=== PATIENT | male | born 1975 | race African-American/Black ===

== ENCOUNTER 2025-02-27 19:18 | Inpatient (IN) | payer MEDICAID, OTHER ==
[~2025-02-27] VITALS: Ht 170.2 cm; Wt 60.3 kg
[2025-02-27 01:28] VITALS: BP 138/59; PULSE 84; RESP 18; TEMP 36.1956
[2025-02-27] MEDS: DIPHENHYDRAMINE 50MG/ML VIAL IM ONE (20:32)
[2025-02-27] MEDS: HALOPERIDOL LACTATE 5MG/ML VIAL IM ONE (20:32)
[2025-02-27 20:41] LABS: BASOPHILS % 0.8 % (0.0-2.0); EOSINOPHILS % 4.9 % (0.0-5.0); HEMATOCRIT. 33.0 % (42.0-52.0); HEMOGLOBIN. 10.5 g/dL (14.0-18.0); LYMPHOCYTES % 28.9 % (20.0-50.0); MEAN PLATELET VOLUME 8.3 fl (7.4-10.4); MONOCYTES % 8.5 % (2.0-8.0); NEUTROPHILS % 56.9 % (40.0-76.0); PLATELET 202 x1000/uL (130-400); RED BLOOD CELL COUNT 3.32 mill/uL (4.7-6.1); RED CELL DISTRIBUTION WIDTH 17.2 % (11.6-14.6)
[2025-02-27 20:53] LABS: INR 1.2
[2025-02-27 20:57] LABS: CREATININE 2.5 mg/dL (0.6-1.3); UREA NITROGEN BLOOD 35 mg/dL (9-23)
[2025-02-27 20:59] LABS: ASPARTATE AMINOTRANSFERASE 223 IU/L (<34); BILIRUBIN DIRECT 0.6 mg/dL (<=3.0); BILIRUBIN TOTAL 1.6 mg/dL (0.1-1.0); PROTEIN TOTAL 7.9 g/dL (6.0-8.3)
[2025-02-27] MEDS ORDERED: MIDAZOLAM HCL 2 MG/2 ML VIAL IV ONE (21:00)
[2025-02-27 21:02] VITALS: O2SAT 98
[2025-02-27] MEDS: MIDAZOLAM HCL 2 MG/2 ML VIAL IM ONE (21:02)
[2025-02-27 21:45] LABS: TROPONIN I HIGH SENSITIVITY 134 ng/L (3.0-53)
[2025-02-27] MEDS ORDERED: CLONIDINE 0.1MG TABLET PO PRN (22:15)
[2025-02-27] MEDS ORDERED: POTASSIUM CHLORIDE 20MEQ TABLET SR PO PRN (22:15)
[2025-02-27] MEDS ORDERED: ONDANSETRON HCL 4MG/2ML INJ IV PRN (22:15)
[2025-02-27] MEDS ORDERED: HYDROCODONE/ACETAMINOPHEN 5/325MG TABLET PO PRN (22:15)
[2025-02-27] MEDS ORDERED: IPRATROPIUM/ALBUTEROL 0.5-3(2.5)MG/3ML NEB HHN PRN (22:15)
[2025-02-27] MEDS ORDERED: MAGNESIUM/ALUMINUM HYDROXIDE/SIMETHICONE 30ML UDC PO PRN (22:15)
[2025-02-27] MEDS ORDERED: DEXTROSE 50% WATER 50ML SYRINGE IV PRN (22:15)
[2025-02-27] MEDS: ZIPRASIDONE MESYLATE 20MG/VIAL IM ONE (22:53)
[2025-02-27] MEDS: CLOPIDOGREL 75MG TABLET PO ONE (23:44)
[2025-02-27] MEDS: ASPIRIN 325MG EC TABLET PO ONE (23:45)
[2025-02-27] MEDS: FUROSEMIDE 40MG/4 ML UDC PO ONE (23:45)
[2025-02-28 00:34] LABS: CLARITY URINE CLEAR (CLEAR); COLOR URINE YELLOW (YELLOW); GLUCOSE URINE NEGATIVE (NEGATIVE); KETONES URINE NEGATIVE (NEGATIVE); LEUKOCYTE ESTERASE URINE NEGATIVE (NEGATIVE); NITRITE URINE NEGATIVE (NEGATIVE); OCCULT BLOOD URINE 1+ (NEGATIVE); PH URINE 5.5 (4.5-8.0); PROTEIN URINE 3+ (NEGATIVE); SPECIFIC GRAVITY URINE 1.014 (1.005-1.030); UROBILINOGEN URINE 1.0 E.U./dL (0.2-1.0)
[2025-02-28] MEDS ORDERED: ACETAMINOPHEN 650MG SUPP PR PRN (00:45)
[2025-02-28 00:46] LABS: *AMPHETAMINES SCREEN URINE NEGATIVE (NEGATIVE); *BARBITURATES SCREEN URINE NEGATIVE (NEGATIVE); *BENZODIAZEPINES SCREEN URINE PRESUMPTIVE POSITIVE (NEGATIVE); *COCAINE SCREEN URINE PRESUMPTIVE POSITIVE (NEGATIVE); METHADONE URINE SCREEN NEGATIVE (NEGATIVE)
[2025-02-28 00:47] LABS: CANNABINOID URINE SCREEN PRESUMPTIVE POSITIVE (NEGATIVE); ECSTASY MDMA SCREEN URINE NEGATIVE (NEGATIVE); OPIATES URINE SCREEN NEGATIVE (NEGATIVE); PHENCYCLIDINE URINE SCREEN NEGATIVE (NEGATIVE)
[2025-02-28 01:00] LABS: BACTERIA URINE 1+; SQUAMOUS EPITHELIAL CELL URINE RARE /lpf (RARE/1+); WBC URINE 0-2 /hpf (0-2)
[2025-02-28] MEDS: LORAZEPAM 2MG/ML UD SYRINGE IV PRN (04:12)
[2025-02-28] MEDS: FUROSEMIDE 40MG/4ML VIAL IV SCH (04:14)
[2025-02-28 04:30] LABS: TROPONIN I HIGH SENSITIVITY 119 ng/L (3.0-53)
[2025-02-28] MEDS: BLOOD SUGAR DIAGNOSTIC STRIP TEST SCH (06:07)
[2025-02-28] MEDS: INSULIN LISPRO 100 UNITS/ML SUBCUT SCH (06:08)
[2025-02-28] MEDS: FOLIC ACID 1 MG, THIAMINE HCL 100 MG, MVI, ADULT NO.1 10 ML in DEXTROSE 5% WATER 1,000 ML IV ONE (06:24)
[2025-02-28 08:00] VITALS: BP 139/105; PULSE 81; RESP 18; TEMP 36.6; O2SAT 97
[2025-02-28] MEDS ORDERED: ENOXAPARIN 40MG/0.4ML SYR SUBCUT SCH (09:00)
[2025-02-28] MEDS ORDERED: FUROSEMIDE 40MG/4ML VIAL IV SCH (09:00)
[2025-02-28 09:41] LABS: BASOPHILS % 0.9 % (0.0-2.0); EOSINOPHILS % 5.2 % (0.0-5.0); HEMATOCRIT. 34.0 % (42.0-52.0); HEMOGLOBIN. 10.9 g/dL (14.0-18.0); LYMPHOCYTES % 32.5 % (20.0-50.0); MEAN PLATELET VOLUME 8.5 fl (7.4-10.4); MONOCYTES % 7.1 % (2.0-8.0); NEUTROPHILS % 54.3 % (40.0-76.0); PLATELET 189 x1000/uL (130-400); RED BLOOD CELL COUNT 3.42 mill/uL (4.7-6.1); RED CELL DISTRIBUTION WIDTH 16.8 % (11.6-14.6)
[2025-02-28 10:12] LABS: CREATININE 2.4 mg/dL (0.6-1.3); TRIGLYCERIDE 88 mg/dL (0-150); UREA NITROGEN BLOOD 39 mg/dL (9-23)
[2025-02-28 10:13] LABS: LDL CHOLESTEROL 97 mg/dL (5-100)
[2025-02-28 10:14] LABS: ASPARTATE AMINOTRANSFERASE 177 IU/L (<34); BILIRUBIN DIRECT 0.6 mg/dL (<=3.0); PROTEIN TOTAL 8.1 g/dL (6.0-8.3)
[2025-02-28 10:15] LABS: BILIRUBIN TOTAL 1.7 mg/dL (0.1-1.0); PHOSPHORUS 3.8 mg/dL (2.5-4.9); T4 FREE 1.36 ng/dL (0.89-1.76)
[2025-02-28 11:44] LABS: FOLIC ACID (FOLATE) SERUM > 20.00 ng/mL (>5.38)
[2025-02-28 11:55] VITALS: BP 135/109; PULSE 82; RESP 18; TEMP 37.2; O2SAT 98
[2025-02-28 12:15] LABS: T4 FREE 1.33 ng/dL (0.89-1.76)
[2025-02-28 12:29] LABS: TROPONIN I HIGH SENSITIVITY 129 ng/L (3.0-53)
[2025-02-28 12:52] LABS: VITAMIN B12 SERUM 3566 pg/mL (211-911)
[2025-02-28] MEDS: FAMOTIDINE 20MG/2ML VIAL IV SCH (13:25)
[2025-02-28] MEDS: ENOXAPARIN 80MG/0.8ML SYR SUBCUT SCH (13:25)
[2025-02-28] MEDS: DEXTROSE 50% WATER 50ML SYRINGE IV PRN (13:26)
[2025-02-28] MEDS ORDERED: NALOXONE HCL 0.4MG/ML VIAL IV PRN (16:15)
[2025-02-28 16:41] VITALS: BP 152/100; PULSE 102; RESP 17; TEMP 37.4
[2025-02-28 20:00] VITALS: BP 147/89; PULSE 100; RESP 18; TEMP 36.9; O2SAT 98
[2025-03-01] VITALS: BP 150/66; PULSE 89; RESP 18; TEMP 36.9; O2SAT 98
[2025-03-01 04:00] VITALS: BP 140/88; PULSE 88; RESP 22; TEMP 36.7; O2SAT 97
[2025-03-01 06:57] LABS: BASOPHILS % 0.7 % (0.0-2.0); EOSINOPHILS % 4.9 % (0.0-5.0); HEMATOCRIT. 31.6 % (42.0-52.0); HEMOGLOBIN. 10.2 g/dL (14.0-18.0); LYMPHOCYTES % 33.4 % (20.0-50.0); MEAN PLATELET VOLUME 8.3 fl (7.4-10.4); MONOCYTES % 8.8 % (2.0-8.0); NEUTROPHILS % 52.2 % (40.0-76.0); PLATELET 189 x1000/uL (130-400); RED BLOOD CELL COUNT 3.20 mill/uL (4.7-6.1); RED CELL DISTRIBUTION WIDTH 16.9 % (11.6-14.6)
[2025-03-01 07:44] LABS: CREATININE 2.6 mg/dL (0.6-1.3); UREA NITROGEN BLOOD 33 mg/dL (9-23)
[2025-03-01 07:46] LABS: ASPARTATE AMINOTRANSFERASE 117 IU/L (<34); BILIRUBIN DIRECT 0.7 mg/dL (<=3.0)
[2025-03-01 07:47] LABS: BILIRUBIN TOTAL 2.0 mg/dL (0.1-1.0); PHOSPHORUS 3.8 mg/dL (2.5-4.9); PROTEIN TOTAL 7.7 g/dL (6.0-8.3)
[2025-03-01 08:00] VITALS: BP 140/109; PULSE 95; RESP 20; TEMP 36.8; O2SAT 97
[2025-03-01] MEDS: LORAZEPAM 2MG/ML UD SYRINGE IV NR (08:17)
[2025-03-01] MEDS: EMPAGLIFLOZIN 10MG TABLET PO SCH (11:30)
[2025-03-01 12:00] VITALS: BP 174/113; PULSE 111; RESP 18; TEMP 36.3; O2SAT 97
[2025-03-01 20:13] VITALS: BP 149/96; PULSE 104; RESP 20; TEMP 36.3; O2SAT 96
[2025-03-01 23:32] VITALS: BP 152/112; PULSE 99; RESP 18; TEMP 36.4; O2SAT 95
[2025-03-02] MEDS: HYDRALAZINE 20MG/ML VIAL IV PRN ×2 (00:02→05:35)
[2025-03-02] MEDS: LORAZEPAM 2MG/ML UD SYRINGE IV PRN (00:07)
[2025-03-02 04:18] VITALS: BP 153/112; PULSE 99; RESP 20; TEMP 36.4; O2SAT 99
[2025-03-02 08:00] VITALS: BP 148/100; PULSE 99; RESP 20; TEMP 36.3; O2SAT 100
[2025-03-02 12:00] VITALS: BP 145/107; PULSE 88; RESP 20; TEMP 36.7; O2SAT 100
[2025-03-02] MEDS: DEXTROSE 5% WATER 1,000 ML IV SCH (12:09)
[2025-03-02] MEDS: MULTIVITAMINS,THER W-MINERALS TABLET PO SCH (13:00)
[2025-03-02] MEDS ORDERED: FOLIC ACID 1MG TABLET PO SCH (13:00)
[2025-03-02] MEDS: THIAMINE HCL 100 MG/1 ML 2ML VIAL IM SCH (13:00)
[2025-03-02 16:00] VITALS: BP 148/112; PULSE 87; RESP 20; TEMP 36.3; O2SAT 99
[2025-03-02] MEDS ORDERED: THIAMINE HCL 100MG TABLET PO SCH (18:00)
[2025-03-02 20:00] VITALS: BP 161/112; PULSE 104; RESP 19; TEMP 36.8; O2SAT 98
[2025-03-02] MEDS ORDERED: FOLIC ACID 1 MG, THIAMINE HCL 100 MG, MVI, ADULT NO.1 10 ML in DEXTROSE 5% WATER 1,000 ML IV ONE (20:00)
[2025-03-02] MEDS: AMLODIPINE 5MG TABLET PO SCH (21:31)
[2025-03-03] VITALS: BP 142/83; PULSE 99; RESP 19; TEMP 37.1; O2SAT 100
[2025-03-03 04:00] VITALS: BP 140/80; PULSE 97; RESP 20; TEMP 36.5; O2SAT 100
[2025-03-03 08:00] VITALS: BP 136/100; PULSE 98; RESP 18; TEMP 36.3; O2SAT 100
[2025-03-03 08:00] LABS: BASOPHILS % 0.4 % (0.0-2.0); EOSINOPHILS % 5.5 % (0.0-5.0); HEMATOCRIT. 31.5 % (42.0-52.0); HEMOGLOBIN. 10.4 g/dL (14.0-18.0); LYMPHOCYTES % 24.2 % (20.0-50.0); MEAN PLATELET VOLUME 8.6 fl (7.4-10.4); MONOCYTES % 10.8 % (2.0-8.0); NEUTROPHILS % 59.1 % (40.0-76.0); PLATELET 206 x1000/uL (130-400); RED BLOOD CELL COUNT 3.23 mill/uL (4.7-6.1); RED CELL DISTRIBUTION WIDTH 17.3 % (11.6-14.6)
[2025-03-03 08:56] LABS: TROPONIN I HIGH SENSITIVITY 180 ng/L (3.0-53)
[2025-03-03 09:20] LABS: HEPATITIS A AB IGM NEGATIVE (Negative); HEPATITIS B CORE AB IGM NEGATIVE (Negative)
[2025-03-03 09:21] LABS: HEPATITIS C AB NON REACTIVE (Neg) (Negative)
[2025-03-03 09:37] LABS: CREATININE 2.7 mg/dL (0.6-1.3); UREA NITROGEN BLOOD 37.0 mg/dL (9-23)
[2025-03-03] MEDS: THIAMINE HCL 100MG TABLET PO SCH (10:23)
[2025-03-03 12:00] VITALS: BP 152/85; PULSE 96; RESP 18; TEMP 36.2; O2SAT 98
[2025-03-03 16:00] VITALS: BP 135/97; PULSE 89; RESP 18; TEMP 36.2; O2SAT 100
[2025-03-03 20:00] VITALS: BP 135/105; PULSE 84; RESP 16; TEMP 36.2; O2SAT 97
[2025-03-04] VITALS: BP 143/105; PULSE 91; RESP 16; TEMP 36.2; O2SAT 98
[2025-03-04 04:00] VITALS: BP_SYST 132; BP_SYST 142; BP_DIAS 112; BP_DIAS 95; PULSE 85; PULSE 93; RESP 16; RESP 18; TEMP 36.4; TEMP 36.6; O2SAT 92; O2SAT 99
[2025-03-04 06:28] LABS: CREATININE 2.3 mg/dL (0.6-1.3); UREA NITROGEN BLOOD 30 mg/dL (9-23)
[2025-03-04 06:30] LABS: PHOSPHORUS 3.2 mg/dL (2.5-4.9)
[2025-03-04 06:34] LABS: BASOPHILS % 0.4 % (0.0-2.0); EOSINOPHILS % 7.2 % (0.0-5.0); HEMATOCRIT. 32.9 % (42.0-52.0); HEMOGLOBIN. 10.6 g/dL (14.0-18.0); LYMPHOCYTES % 29.5 % (20.0-50.0); MEAN PLATELET VOLUME 8.6 fl (7.4-10.4); MONOCYTES % 11.2 % (2.0-8.0); NEUTROPHILS % 51.7 % (40.0-76.0); PLATELET 211 x1000/uL (130-400); RED BLOOD CELL COUNT 3.31 mill/uL (4.7-6.1); RED CELL DISTRIBUTION WIDTH 17.5 % (11.6-14.6)
[2025-03-04 07:31] LABS: ASPARTATE AMINOTRANSFERASE 42 IU/L (<34); BILIRUBIN DIRECT 0.7 mg/dL (<=3.0); BILIRUBIN TOTAL 2.1 mg/dL (0.1-1.0); PROTEIN TOTAL 8.1 g/dL (6.0-8.3)
[2025-03-04 08:00] VITALS: BP 147/113; PULSE 91; RESP 18; TEMP 36.3; O2SAT 97
[2025-03-04 12:00] VITALS: BP 150/105; PULSE 101; RESP 20; TEMP 37; O2SAT 97
[2025-03-04] MEDS: CLONIDINE 0.2MG TABLET PO SCH (14:00)
[2025-03-04 16:00] VITALS: BP 148/98; PULSE 89; RESP 18; TEMP 36.7; O2SAT 95
[2025-03-04 20:00] VITALS: BP 145/98; PULSE 89; RESP 20; TEMP 37; O2SAT 96
[2025-03-04] MEDS: BUSPIRONE HCL 5MG TABLET PO SCH (22:35)
[2025-03-05] VITALS: BP 141/86; PULSE 86; RESP 18; TEMP 36.9; O2SAT 97
[2025-03-05 04:43] VITALS: BP 138/87; PULSE 63; RESP 20; TEMP 36.7; O2SAT 98
[2025-03-05 06:50] LABS: CREATININE 2.4 mg/dL (0.6-1.3); UREA NITROGEN BLOOD 28 mg/dL (9-23)
[2025-03-05 06:52] LABS: PHOSPHORUS 3.3 mg/dL (2.5-4.9)
[2025-03-05 08:42] VITALS: BP 105/74; PULSE 82; RESP 20; TEMP 36.6
[2025-03-05] MEDS: PIPERACILLIN/TAZO 3.375G/50ML 50 ML IV SCH (11:50)
[2025-03-05 12:53] VITALS: BP 128/82; PULSE 93; RESP 19; TEMP 36.7; O2SAT 100
[2025-03-05 16:00] VITALS: BP 131/80; PULSE 90; RESP 20; TEMP 36.4; O2SAT 98
[2025-03-05] MEDS ORDERED: LABETALOL 5MG/ML 4ML INJ IV PRN (17:15)
[2025-03-05 20:00] VITALS: BP 136/95; PULSE 96; RESP 18; TEMP 36.7; O2SAT 98
[2025-03-05] MEDS: ATORVASTATIN CALCIUM 40MG TABLET PO SCH (20:49)
[2025-03-05] MEDS: ASPIRIN 81MG EC TABLET PO SCH (20:50)
[2025-03-06] VITALS: BP 140/86; PULSE 89; RESP 20; TEMP 36.8; O2SAT 98
[2025-03-06 04:00] VITALS: BP 105/75; PULSE 82; RESP 20; TEMP 37.7; O2SAT 98
[2025-03-06 06:29] LABS: TRIGLYCERIDE 53.0 mg/dL (0-150)
[2025-03-06 06:30] LABS: LDL CHOLESTEROL 79.0 mg/dL (5-100)
[2025-03-06 08:00] VITALS: BP 106/78; PULSE 86; RESP 20; TEMP 36.2; O2SAT 97
[2025-03-06] MEDS: CLOPIDOGREL 75MG TABLET PO SCH (10:15)
[2025-03-06 12:00] VITALS: BP 136/89; PULSE 90; RESP 20; TEMP 36.1; O2SAT 98
[2025-03-06 16:00] VITALS: BP 133/81; PULSE 84; RESP 20; TEMP 36.6; O2SAT 98
[2025-03-06 20:00] VITALS: BP 122/71; PULSE 86; RESP 18; TEMP 36.5; O2SAT 97
[2025-03-06] MEDS: BUSPIRONE HCL 10MG TABLET PO SCH (21:57)
[2025-03-07] VITALS: BP 127/69; PULSE 84; RESP 20; TEMP 36.6; O2SAT 96
[2025-03-07 04:00] VITALS: BP 102/67; PULSE 66; RESP 20; TEMP 36.7; O2SAT 97
[2025-03-07 06:04] LABS: CREATININE 2.7 mg/dL (0.6-1.3); UREA NITROGEN BLOOD 27.0 mg/dL (9-23)
[2025-03-07 06:55] LABS: BASOPHILS % 0.9 % (0.0-2.0); EOSINOPHILS % 7.2 % (0.0-5.0); HEMATOCRIT. 31.0 % (42.0-52.0); HEMOGLOBIN. 10.0 g/dL (14.0-18.0); LYMPHOCYTES % 31.6 % (20.0-50.0); MEAN PLATELET VOLUME 8.6 fl (7.4-10.4); MONOCYTES % 14.2 % (2.0-8.0); NEUTROPHILS % 46.1 % (40.0-76.0); PLATELET 198 x1000/uL (130-400); RED BLOOD CELL COUNT 3.07 mill/uL (4.7-6.1); RED CELL DISTRIBUTION WIDTH 17.5 % (11.6-14.6)
[2025-03-07 08:00] VITALS: BP 118/79; PULSE 81; RESP 18; TEMP 36.2; O2SAT 98
[2025-03-07 12:00] VITALS: BP 126/90; PULSE 92; RESP 20; TEMP 36.7; O2SAT 100
[2025-03-07 16:00] VITALS: BP 128/94; PULSE 97; RESP 22; TEMP 36.6; O2SAT 96
[2025-03-07] MEDS: ACETAMINOPHEN 325MG TABLET PO PRN (17:39)
[2025-03-07 20:00] VITALS: BP 123/88; PULSE 90; RESP 20; TEMP 36.8; O2SAT 98
[2025-03-08] VITALS (7 sets, daily range): BP systolic 102–122; BP diastolic 64–86; PULSE 67–85; RESP 18–20; TEMP 36–36.8; O2SAT 96–100
[2025-03-08 06:26] LABS: BASOPHILS % 0.7 % (0.0-2.0); EOSINOPHILS % 5.8 % (0.0-5.0); HEMATOCRIT. 30.4 % (42.0-52.0); HEMOGLOBIN. 9.8 g/dL (14.0-18.0); LYMPHOCYTES % 36.5 % (20.0-50.0); MEAN PLATELET VOLUME 8.8 fl (7.4-10.4); MONOCYTES % 10.7 % (2.0-8.0); NEUTROPHILS % 46.3 % (40.0-76.0); PLATELET 208 x1000/uL (130-400); RED BLOOD CELL COUNT 3.04 mill/uL (4.7-6.1); RED CELL DISTRIBUTION WIDTH 17.7 % (11.6-14.6)
[2025-03-08 06:44] LABS: CREATININE 2.8 mg/dL (0.6-1.3)
[2025-03-08 06:45] LABS: UREA NITROGEN BLOOD 30 mg/dL (9-23)
[2025-03-08 06:47] LABS: PHOSPHORUS 3.9 mg/dL (2.5-4.9)
[2025-03-08] MEDS: CLONIDINE 0.1MG TABLET PO SCH (13:25)
[2025-03-09] VITALS: BP 154/103; PULSE 95; RESP 18; TEMP 36.5; O2SAT 97
[2025-03-09 04:00] VITALS: BP 148/82; PULSE 90; RESP 18; TEMP 36.8; O2SAT 98
[2025-03-09 07:59] VITALS: BP 149/101; PULSE 97; RESP 18; TEMP 36.2; O2SAT 95
[2025-03-09 12:11] VITALS: BP 115/84; PULSE 70; RESP 20; TEMP 36.7; O2SAT 97
[2025-03-09 16:24] VITALS: BP 116/75; PULSE 71; RESP 19; TEMP 35.9; O2SAT 93
[2025-03-09 19:48] VITALS: BP 134/94; PULSE 74; RESP 20; TEMP 36.2; O2SAT 96
[2025-03-10] VITALS (8 sets, daily range): BP systolic 111–127; BP diastolic 76–96; PULSE 68–87; RESP 18–20; TEMP 36.3–37; O2SAT 96–100
[2025-03-11] VITALS: BP 131/93; PULSE 80; RESP 19; TEMP 36.3; O2SAT 98
[2025-03-11 04:00] VITALS: BP 137/101; PULSE 94; RESP 19; TEMP 36.6; O2SAT 98
[2025-03-11 08:00] VITALS: BP 135/90; PULSE 93; RESP 20; TEMP 36.4; O2SAT 99
[2025-03-11 11:18] VITALS: BP 143/111; PULSE 101; RESP 20; TEMP 36.4; O2SAT 99
[2025-03-11] MEDS ORDERED: HYDRALAZINE 10 MG in SODIUM CHLORIDE 0.9% 49.5 ML IV PRN (11:30)
[2025-03-11 11:46] LABS: BASOPHILS % 1.0 % (0.0-2.0); EOSINOPHILS % 5.3 % (0.0-5.0); HEMATOCRIT. 32.5 % (42.0-52.0); HEMOGLOBIN. 10.4 g/dL (14.0-18.0); LYMPHOCYTES % 35.4 % (20.0-50.0); MEAN PLATELET VOLUME 8.7 fl (7.4-10.4); MONOCYTES % 13.2 % (2.0-8.0); NEUTROPHILS % 45.1 % (40.0-76.0); PLATELET 256 x1000/uL (130-400); RED BLOOD CELL COUNT 3.26 mill/uL (4.7-6.1); RED CELL DISTRIBUTION WIDTH 17.3 % (11.6-14.6)
[2025-03-11 11:56] LABS: CREATININE 2.4 mg/dL (0.6-1.3); UREA NITROGEN BLOOD 22.0 mg/dL (9-23)
[2025-03-11 17:50] VITALS: BP 140/90; PULSE 100; RESP 20; TEMP 36.7; O2SAT 98
[2025-03-11 20:00] VITALS: BP 113/80; PULSE 89; RESP 18; TEMP 36.5; O2SAT 97
[2025-03-11] MEDS: LORAZEPAM 0.5MG TABLET PO PRN (22:04)
[2025-03-12] VITALS: BP 137/84; PULSE 70; RESP 18; TEMP 36.4; O2SAT 100
[2025-03-12 04:00] VITALS: BP 126/89; PULSE 68; RESP 18; TEMP 36.4; O2SAT 100
[2025-03-12 08:00] VITALS: BP 134/93; PULSE 85; RESP 18; TEMP 36.1; O2SAT 95
[2025-03-12 12:00] VITALS: BP 127/91; PULSE 86; RESP 18; TEMP 36.2; O2SAT 100
[2025-03-12 16:00] VITALS: BP 145/97; PULSE 78; RESP 18; TEMP 36.4; O2SAT 100
[2025-03-12 20:00] VITALS: BP_SYST 122; BP_SYST 145; BP_DIAS 87; BP_DIAS 95; PULSE 79; PULSE 92; RESP 18; TEMP 36.5; O2SAT 96; O2SAT 98
[2025-03-13 04:00] VITALS: BP 124/91; PULSE 85; RESP 18; TEMP 36.7; O2SAT 97
[2025-03-13 08:00] VITALS: BP 118/78; PULSE 81; RESP 18; TEMP 36.3; O2SAT 99
[2025-03-13 12:00] VITALS: BP 120/85; PULSE 80; RESP 18; TEMP 36.2; O2SAT 98
[2025-03-13 16:00] VITALS: BP 122/92; PULSE 81; RESP 16; TEMP 36.2; O2SAT 96
[2025-03-13 16:25] LABS: BASOPHILS % 0.7 % (0.0-2.0); EOSINOPHILS % 6.7 % (0.0-5.0); HEMATOCRIT. 32.5 % (42.0-52.0); HEMOGLOBIN. 10.6 g/dL (14.0-18.0); LYMPHOCYTES % 36.1 % (20.0-50.0); MEAN PLATELET VOLUME 8.6 fl (7.4-10.4); MONOCYTES % 9.7 % (2.0-8.0); NEUTROPHILS % 46.8 % (40.0-76.0); PLATELET 235 x1000/uL (130-400); RED BLOOD CELL COUNT 3.25 mill/uL (4.7-6.1); RED CELL DISTRIBUTION WIDTH 17.3 % (11.6-14.6)
[2025-03-13 16:48] LABS: CREATININE 2.0 mg/dL (0.6-1.3); UREA NITROGEN BLOOD 15.0 mg/dL (9-23)
[2025-03-13 20:00] VITALS: BP 127/85; PULSE 80; RESP 18; TEMP 36.5; O2SAT 100
[2025-03-13] MEDS: APIXABAN 5 MG TABLET PO SCH (22:47)
[2025-03-14] VITALS: BP 125/89; PULSE 107; RESP 18; TEMP 36.4; O2SAT 98
[2025-03-14 08:00] VITALS: BP 132/94; PULSE 116; RESP 22; TEMP 36.4; O2SAT 98
[2025-03-14 12:00] VITALS: BP 124/88; PULSE 81; RESP 19; TEMP 36.6; O2SAT 95
[2025-03-14 16:00] VITALS: BP 120/80; PULSE 80; RESP 17; TEMP 36.4; O2SAT 96
[2025-03-14 20:00] VITALS: BP 120/79; PULSE 86; RESP 19; TEMP 36.1; O2SAT 98
[2025-03-15] VITALS: BP 107/88; PULSE 64; RESP 18; TEMP 36.3; O2SAT 96
[2025-03-15 08:00] VITALS: BP 125/83; PULSE 75; RESP 18; TEMP 36.5; O2SAT 96
[2025-03-15 12:00] VITALS: BP 127/93; PULSE 64; RESP 18; TEMP 36.6; O2SAT 100
[2025-03-15 16:00] VITALS: BP 107/72; PULSE 93; RESP 18; TEMP 36.6; O2SAT 98
[2025-03-15 18:55] LABS: HEMATOCRIT. 28.5 % (42.0-52.0); HEMOGLOBIN. 9.4 g/dL (14.0-18.0); MEAN PLATELET VOLUME 8.9 fl (7.4-10.4); PLATELET 235 x1000/uL (130-400); RED BLOOD CELL COUNT 2.89 mill/uL (4.7-6.1); RED CELL DISTRIBUTION WIDTH 17.3 % (11.6-14.6)
[2025-03-15 19:15] LABS: CREATININE 2.1 mg/dL (0.6-1.3); EOSINOPHILS % MANUAL 3.0 % (0.0-5.0); LYMPHOCYTES % MANUAL 29.0 % (20.0-50.0); MONOCYTES % MANUAL 22.0 % (2.0-8.0); NEUTROPHILS % MANUAL 46.0 % (45.0-75.0); PLATELET ESTIMATE NORMAL; UREA NITROGEN BLOOD 28.0 mg/dL (9-23)
[2025-03-16] VITALS: BP 123/88; PULSE 99; RESP 19; TEMP 36.4; O2SAT 97
[2025-03-16 04:00] VITALS: BP 127/89; PULSE 61; RESP 18; TEMP 35.6; O2SAT 100
[2025-03-16 06:29] LABS: HEMATOCRIT. 32.8 % (42.0-52.0); HEMOGLOBIN. 10.4 g/dL (14.0-18.0); MEAN PLATELET VOLUME 8.7 fl (7.4-10.4); PLATELET 208 x1000/uL (130-400); RED BLOOD CELL COUNT 3.28 mill/uL (4.7-6.1); RED CELL DISTRIBUTION WIDTH 17.6 % (11.6-14.6)
[2025-03-16 06:52] LABS: CREATININE 2.2 mg/dL (0.6-1.3)
[2025-03-16 06:53] LABS: UREA NITROGEN BLOOD 25.0 mg/dL (9-23)
[2025-03-16 08:00] VITALS: BP 144/90; PULSE 100; RESP 16; TEMP 36.5; O2SAT 99
[2025-03-16 12:00] VITALS: BP 122/87; PULSE 94; RESP 18; TEMP 36.6; O2SAT 99
[2025-03-16 16:00] VITALS: BP 116/75; PULSE 95; RESP 18; TEMP 36.3; O2SAT 97
[2025-03-16 17:15] LABS: EOSINOPHILS % MANUAL 3.0 % (0.0-5.0); LYMPHOCYTES % MANUAL 37.0 % (20.0-50.0); MONOCYTES % MANUAL 8.0 % (2.0-8.0); NEUTROPHILS % MANUAL 52.0 % (45.0-75.0); PLATELET ESTIMATE NORMAL
[2025-03-16 20:00] VITALS: BP 115/74; PULSE 92; RESP 18; TEMP 36.4; O2SAT 95
[2025-03-17] VITALS: BP 120/74; PULSE 47; RESP 18; TEMP 36.2; O2SAT 99
[2025-03-17 04:00] VITALS: BP 110/79; PULSE 95; RESP 18; TEMP 36.6; O2SAT 100
[2025-03-17 05:18] LABS: CREATININE 2.4 mg/dL (0.6-1.3)
[2025-03-17 05:19] LABS: UREA NITROGEN BLOOD 36.0 mg/dL (9-23)
[2025-03-17 08:00] VITALS: BP 130/94; PULSE 56; RESP 20; TEMP 35.6; O2SAT 97
[2025-03-17 12:00] VITALS: BP 119/86; PULSE 86; RESP 18; TEMP 35.1; O2SAT 100
[2025-03-17 16:00] VITALS: BP 114/79; PULSE 68; RESP 18; TEMP 36; O2SAT 98
[2025-03-17 20:00] VITALS: BP 117/87; PULSE 88; RESP 19; TEMP 36.2; O2SAT 98
[2025-03-18] VITALS: BP 132/86; PULSE 89; RESP 18; TEMP 36.4; O2SAT 98
[2025-03-18 04:00] VITALS: BP 130/79; PULSE 94; RESP 18; TEMP 36.7; O2SAT 97
[2025-03-18 08:00] VITALS: BP 126/80; PULSE 114; RESP 22; TEMP 36.3; O2SAT 100
[2025-03-18 12:00] VITALS: BP 119/91; PULSE 98; RESP 19; TEMP 36.1; O2SAT 100
[2025-03-18 16:00] VITALS: BP 120/89; PULSE 90; RESP 18; TEMP 35.7; O2SAT 100
[2025-03-18 20:00] VITALS: BP 106/58; PULSE 93; RESP 16; TEMP 36; O2SAT 95
[2025-03-19] VITALS: BP 136/68; PULSE 90; RESP 18; TEMP 36.3; O2SAT 99
[2025-03-19 04:00] VITALS: BP 120/77; PULSE 91; RESP 17; TEMP 36.4; O2SAT 98
[2025-03-19 06:21] LABS: CREATININE 2.2 mg/dL (0.6-1.3); UREA NITROGEN BLOOD 37.0 mg/dL (9-23)
[2025-03-19 08:00] VITALS: BP 118/87; PULSE 109; RESP 20; TEMP 36.2; O2SAT 100
[2025-03-19 12:00] VITALS: BP 119/85; PULSE 96; RESP 20; TEMP 35.7; O2SAT 100
[2025-03-19 16:00] VITALS: BP 115/76; PULSE 89; RESP 18; TEMP 36.1; O2SAT 100
[2025-03-19 20:00] VITALS: BP 118/73; PULSE 70; RESP 18; TEMP 36.2; O2SAT 96
[2025-03-20] VITALS: BP 121/86; PULSE 89; RESP 19; TEMP 36.3; O2SAT 99
[2025-03-20 04:00] VITALS: BP 133/92; PULSE 92; RESP 18; TEMP 36.2; O2SAT 99
[2025-03-20 08:00] VITALS: BP 130/80; PULSE 87; RESP 18; TEMP 35.8; O2SAT 100
[2025-03-20 12:00] VITALS: BP 126/91; PULSE 100; RESP 19; TEMP 36.4; O2SAT 97
[2025-03-20 16:00] VITALS: BP 114/69; PULSE 94; RESP 18; TEMP 36.5; O2SAT 97
[2025-03-20 20:00] VITALS: BP 113/71; PULSE 100; RESP 19; TEMP 36.6; O2SAT 83; O2SAT 95
[2025-03-21] VITALS: BP 127/90; PULSE 96; RESP 19; TEMP 36.7; O2SAT 100
[2025-03-21 08:00] VITALS: BP 107/81; PULSE 100; RESP 20; TEMP 36.4; O2SAT 100
[2025-03-21 09:48] LABS: BASOPHILS % 1.0 % (0.0-2.0); EOSINOPHILS % 5.6 % (0.0-5.0); HEMATOCRIT. 30.5 % (42.0-52.0); HEMOGLOBIN. 9.9 g/dL (14.0-18.0); LYMPHOCYTES % 39.6 % (20.0-50.0); MEAN PLATELET VOLUME 8.4 fl (7.4-10.4); MONOCYTES % 5.4 % (2.0-8.0); NEUTROPHILS % 48.4 % (40.0-76.0); PLATELET 262 x1000/uL (130-400); RED BLOOD CELL COUNT 3.09 mill/uL (4.7-6.1); RED CELL DISTRIBUTION WIDTH 16.7 % (11.6-14.6)
[2025-03-21 10:11] LABS: CREATININE 2.2 mg/dL (0.6-1.3)
[2025-03-21 10:12] LABS: UREA NITROGEN BLOOD 40 mg/dL (9-23)
[2025-03-21 10:14] LABS: PHOSPHORUS 4.0 mg/dL (2.5-4.9)
[2025-03-21 12:00] VITALS: BP 136/85; PULSE 95; RESP 19; TEMP 36.3; O2SAT 99
[2025-03-21] MEDS: DOCUSATE SODIUM 100MG CAPSULE PO PRN (15:23)
[2025-03-21 16:00] VITALS: BP 140/73; PULSE 90; RESP 18; TEMP 36.2; O2SAT 98
[2025-03-21 20:00] VITALS: BP 126/82; PULSE 94; RESP 19; TEMP 35.8; O2SAT 99
[2025-03-22] VITALS: BP 113/63; PULSE 92; RESP 19; TEMP 35.8; O2SAT 99
[2025-03-22 04:06] VITALS: BP 121/77; PULSE 88; RESP 18; TEMP 35.9; O2SAT 99
[2025-03-22 08:00] VITALS: BP 119/82; PULSE 102; RESP 22; TEMP 36.4; O2SAT 96
[2025-03-22 12:00] VITALS: BP 124/81; PULSE 94; RESP 19; TEMP 36.3; O2SAT 100
[2025-03-22 16:00] VITALS: BP 120/64; PULSE 90; RESP 18; TEMP 36.6; O2SAT 100
[2025-03-22 20:00] VITALS: BP 115/74; PULSE 100; RESP 19; TEMP 36.3; O2SAT 84
[2025-03-23] VITALS (7 sets, daily range): BP systolic 106–121; BP diastolic 47–90; PULSE 72–100; RESP 13–19; TEMP 36–36.6; O2SAT 87–97
[2025-03-24] VITALS: BP 105/75; PULSE 73; RESP 18; TEMP 35.9; O2SAT 98
[2025-03-24 04:00] VITALS: BP 104/72; PULSE 74; RESP 18; TEMP 35.8; O2SAT 97
[2025-03-24 08:00] VITALS: BP 117/67; PULSE 88; RESP 18; TEMP 36.2; O2SAT 100
[2025-03-24 12:00] VITALS: BP 117/72; PULSE 65; RESP 18; TEMP 36.4; O2SAT 95
[2025-03-24 20:00] VITALS: PULSE 89; RESP 1; TEMP 36.3
[2025-03-25] VITALS: PULSE 89; RESP 19; TEMP 36.3; O2SAT 98
[2025-03-25 08:00] VITALS: BP 115/82; PULSE 98; RESP 18; TEMP 35.9; O2SAT 100
[2025-03-25 10:21] LABS: BASOPHILS % 0.8 % (0.0-2.0); EOSINOPHILS % 5.8 % (0.0-5.0); HEMATOCRIT. 29.7 % (42.0-52.0); HEMOGLOBIN. 9.7 g/dL (14.0-18.0); LYMPHOCYTES % 40.9 % (20.0-50.0); MEAN PLATELET VOLUME 8.1 fl (7.4-10.4); MONOCYTES % 9.9 % (2.0-8.0); NEUTROPHILS % 42.6 % (40.0-76.0); PLATELET 266 x1000/uL (130-400); RED BLOOD CELL COUNT 2.99 mill/uL (4.7-6.1); RED CELL DISTRIBUTION WIDTH 17.0 % (11.6-14.6)
[2025-03-25 10:30] LABS: CREATININE 2.5 mg/dL (0.6-1.3); UREA NITROGEN BLOOD 38 mg/dL (9-23)
[2025-03-25 10:32] LABS: PHOSPHORUS 3.4 mg/dL (2.5-4.9)
[2025-03-25 12:00] VITALS: BP 115/76; PULSE 66; RESP 17; TEMP 36.4; O2SAT 100
[2025-03-25 16:00] VITALS: BP 128/76; PULSE 101; RESP 17; TEMP 36.4; O2SAT 96
[2025-03-25 20:00] VITALS: BP 114/67; PULSE 89; RESP 19; TEMP 36.2; O2SAT 96
[2025-03-26] VITALS: BP 115/65; PULSE 93; RESP 18; TEMP 36.1; O2SAT 96
[2025-03-26 04:00] VITALS: BP 113/60; PULSE 93; RESP 18; TEMP 36.3; O2SAT 96
[2025-03-26 08:00] VITALS: BP 119/68; PULSE 83; RESP 19; TEMP 36.5; O2SAT 98
[2025-03-26 12:00] VITALS: BP 97/60; PULSE 60; RESP 18; TEMP 36.5; O2SAT 95
[2025-03-26 16:00] VITALS: BP 118/80; PULSE 68; RESP 19; TEMP 36.2; O2SAT 95
[2025-03-26 20:00] VITALS: BP 115/86; PULSE 110; RESP 18; TEMP 35.8; O2SAT 95
[2025-03-27 08:00] VITALS: BP 132/72; PULSE 99; RESP 20; TEMP 36.2; O2SAT 100
[2025-03-27 12:00] VITALS: BP 110/67; PULSE 84; RESP 18; TEMP 36.6; O2SAT 97
[2025-03-27 13:57] LABS: CREATININE 2.4 mg/dL (0.6-1.3)
[2025-03-27 13:58] LABS: UREA NITROGEN BLOOD 34.0 mg/dL (9-23)
[2025-03-27 16:00] VITALS: BP 112/63; PULSE 80; RESP 18; TEMP 36.5; O2SAT 97
[2025-03-27 20:00] VITALS: BP 118/83; PULSE 87; RESP 18; TEMP 36.5; O2SAT 93
[2025-03-28] VITALS: BP 120/92; PULSE 95; RESP 18; TEMP 36.4; O2SAT 98
[2025-03-28 08:00] VITALS: BP 125/85; PULSE 90; RESP 20; TEMP 36.3; O2SAT 100
[2025-03-28 12:00] VITALS: BP 120/75; PULSE 88; RESP 19; TEMP 35.9; O2SAT 100
[2025-03-28 16:00] VITALS: BP 97/70; PULSE 83; RESP 17; TEMP 36.3; O2SAT 99
[2025-03-28 20:00] VITALS: BP 128/71; PULSE 85; RESP 19; TEMP 36.4; O2SAT 100
[2025-03-29] VITALS: BP 131/80; PULSE 93; RESP 19; TEMP 36.4; O2SAT 97
[2025-03-29 04:00] VITALS: BP 130/76; PULSE 90; RESP 19; TEMP 36.4; O2SAT 98
[2025-03-29 08:00] VITALS: BP 108/71; PULSE 85; RESP 18; TEMP 36.5; O2SAT 99
[2025-03-29 12:00] VITALS: BP 130/66; PULSE 83; RESP 17; TEMP 36.4; O2SAT 99
[2025-03-29 16:00] VITALS: BP 109/86; PULSE 86; RESP 16; TEMP 36.3; O2SAT 97
[2025-03-29 20:00] VITALS: BP 113/73; PULSE 87; RESP 18; TEMP 36.2; O2SAT 100
[2025-03-30] VITALS: BP 126/88; PULSE 94; RESP 18; TEMP 36.3; O2SAT 98
[2025-03-30 04:00] VITALS: BP 114/83; PULSE 74; RESP 18; TEMP 36.2; O2SAT 98
[2025-03-30 08:00] VITALS: BP 113/84; PULSE 87; RESP 18; TEMP 36.1; O2SAT 98
[2025-03-30 12:00] VITALS: BP 104/69; PULSE 81; RESP 17; TEMP 36.3; O2SAT 98
[2025-03-30 16:00] VITALS: BP 116/67; PULSE 85; RESP 18; TEMP 36.3; O2SAT 100
[2025-03-30 20:00] VITALS: BP 115/86; PULSE 86; RESP 18; TEMP 36.1; O2SAT 94
[2025-03-31] VITALS: BP 134/97; PULSE 86; RESP 17; TEMP 36.4; O2SAT 99
[2025-03-31 04:00] VITALS: BP 126/93; PULSE 95; RESP 17; TEMP 36.4; O2SAT 99
[2025-03-31 08:00] VITALS: BP 132/99; PULSE 102; RESP 22; TEMP 36.6; O2SAT 99
[2025-03-31 12:00] VITALS: BP 126/95; PULSE 100; RESP 20; TEMP 35.9; O2SAT 99
[2025-03-31 16:00] VITALS: BP 130/66; PULSE 90; RESP 19; TEMP 36.4; O2SAT 100
[2025-03-31 20:00] VITALS: BP 130/66; PULSE 90; RESP 19; TEMP 36.4
[2025-04-01] VITALS (7 sets, daily range): BP systolic 95–134; BP diastolic 66–94; PULSE 82–99; RESP 17–19; TEMP 36.3–36.6; O2SAT 95–100
[2025-04-01] MEDS: THIAMINE HCL 100MG TABLET PO SCH (11:02)
[2025-04-02] VITALS: BP 118/85; PULSE 78; RESP 17; TEMP 36.6; O2SAT 100
[2025-04-02 04:00] VITALS: BP 133/89; PULSE 94; RESP 1; TEMP 36.5; O2SAT 99
[2025-04-02 08:00] VITALS: BP 110/80; PULSE 98; RESP 18; TEMP 36.1; O2SAT 100
[2025-04-02 12:00] VITALS: BP 120/81; PULSE 82; RESP 17; TEMP 36.3; O2SAT 99
[2025-04-02 16:00] VITALS: BP 108/72; PULSE 84; RESP 17; TEMP 36.2; O2SAT 100
[2025-04-02 20:00] VITALS: BP 114/73; PULSE 95; RESP 17; TEMP 36.4; O2SAT 97
[2025-04-03] VITALS (8 sets, daily range): BP systolic 108–130; BP diastolic 73–96; PULSE 71–98; RESP 16–19; TEMP 35.8–36.7; O2SAT 95–98
[2025-04-04] VITALS: BP 110/82; PULSE 82; RESP 19; TEMP 36.8; O2SAT 97
[2025-04-04 04:00] VITALS: BP 124/90; PULSE 80; RESP 19; TEMP 36; O2SAT 92
[2025-04-04 08:00] VITALS: BP 125/95; PULSE 96; RESP 18; TEMP 35.7; O2SAT 97
[2025-04-04 12:00] VITALS: BP 110/98; PULSE 90; RESP 18; TEMP 35.8; O2SAT 100
[2025-04-04 15:49] VITALS: BP 107/81; PULSE 82; RESP 15; TEMP 35.9; O2SAT 98
[2025-04-04 20:00] VITALS: BP 120/90; PULSE 84; RESP 16; O2SAT 99
[2025-04-05] VITALS: BP 119/68; PULSE 78; RESP 18; TEMP 35.9; O2SAT 99
[2025-04-05 04:00] VITALS: BP 124/83; PULSE 86; RESP 18; TEMP 35.8; O2SAT 100
[2025-04-05 08:00] VITALS: BP 113/80; PULSE 75; RESP 17; TEMP 36.4; O2SAT 99
[2025-04-05] MEDS ORDERED: APIX5TAB PO (09:53)
[2025-04-05 12:00] VITALS: BP 127/74; PULSE 81; RESP 18; TEMP 36.2; O2SAT 100
[2025-04-05 16:00] VITALS: BP 110/74; PULSE 82; RESP 20; TEMP 36.4; O2SAT 100
[2025-04-05 20:00] VITALS: BP 118/76; PULSE 84; RESP 19; TEMP 36.4; O2SAT 100
[2025-04-06] VITALS (7 sets, daily range): BP systolic 106–160; BP diastolic 66–88; PULSE 52–97; RESP 14–19; TEMP 36.1–36.4; O2SAT 94–97
== END 2025-04-06 20:37 | DRG 52 ==
LOC: ER 19:18 → 7WST 21:54 → EDBD 21:54 → EDBEDREQTM 22:02 → EDBEDREQ 22:02 → ENRESERV 23:02 → 7WST 03-07 07:06 → 7EST 03-11 10:55
PROVIDERS: ADMIT Student in an Organized Health Care Education/Training Program; ATTEND Student in an Organized Health Care Education/Training Program
DX: G93.41 Metabolic encephalopathy (principal); I82.413 Acute embolism and thrombosis of femoral vein, bilateral; I63.81 Other cerebral infarction due to occlusion or stenosis of small artery; E87.20 Acidosis, unspecified; I21.A1 Myocardial infarction type 2; R13.10 Dysphagia, unspecified; I42.9 Cardiomyopathy, unspecified; N17.9 Acute kidney failure, unspecified; F19.20 Other psychoactive substance dependence, uncomplicated; G31.9 Degenerative disease of nervous system, unspecified; E11.22 Type 2 diabetes mellitus with diabetic chronic kidney disease; I13.0 Hypertensive heart and chronic kidney disease with heart failure and stage 1 through stage 4 chronic kidney disease, or unspecified chronic kidney disease; D64.9 Anemia, unspecified; I07.1 Rheumatic tricuspid insufficiency; N18.9 Chronic kidney disease, unspecified; R47.01 Aphasia; F12.20 Cannabis dependence, uncomplicated; F14.10 Cocaine abuse, uncomplicated; F13.10 Sedative, hypnotic or anxiolytic abuse, uncomplicated; F41.9 Anxiety disorder, unspecified; R47.1 Dysarthria and anarthria; R53.81 Other malaise; R26.9 Unspecified abnormalities of gait and mobility; I50.9 Heart failure, unspecified; E11.21 Type 2 diabetes mellitus with diabetic nephropathy; M24.542 Contracture, left hand; Z78.1 Physical restraint status; Z87.891 Personal history of nicotine dependence
CPT/HCPCS: 36415; 70551; 71045; 74230; 76700; 80048; 80061; 80076; 80305; 80307; 80320; 80329; 81003; 82140; 82550; 82607; 82728; 82746; 82962; 83036; 83540; 83550; 83605; 83735; 83880; 84100; 84145; 84439; 84443; 84484; 85025; 85379; 86705; 86709; 87340; 92523; 92610; 92611; 93005; 93306; 93880; 93970; 97112; 97116; 97162; 97166; 97530; 97535; 99291; A4606; A4615; J0360; J1200; J1308; J1630; J1650; J1815; J1938; J1940; J2060; J2250; J2543; J3411; J3486; J3490; J7070; G0480